=== PATIENT | female | born 1970 | race Caucasian/White ===

== ENCOUNTER 2018-06-07 19:29 | Emergency (ER) | payer BC ==
[~2018-06-07] VITALS: Ht 152.4 cm; Wt 62.1 kg
[2018-06-07 19:58] VITALS: Ht 152.4 cm; Wt 62.1 kg
[2018-06-07 22:22] VITALS: BP 134/77
== END 2018-06-07 22:22 | disposition home or self-care (01) ==
LOC: ED 19:29
DX: G43.909 Migraine, unspecified, not intractable, without status migrainosus (principal); G89.29 Other chronic pain; M54.2 Cervicalgia; Z88.2 Allergy status to sulfonamides; Z91.041 Radiographic dye allergy status
CPT/HCPCS: J1885; J7030; J8597; Q0163